=== PATIENT | female | born 1950 | race Caucasian/White ===

== ENCOUNTER 2023-12-29 06:14 | Day surgery (SDC) | payer MEDICARE, OTHER, SELFPAY ==
--- NOTE | 2023-11-24 12:12 | CM ---
Addendum entered by Keshia Paz 12/22/23 11:38:
Spoke again with patient. She has obtained a rolling walker and will bring it to the hospital on the day of surgery. She has not yet watched the online education program and was reminded to do so before surgery.
Original Note:
Patient is scheduled for an elective L TKR on 12/29/23- she is a same day patient. Spoke with patient prior to surgery. Introduced role of Orthopedic Navigator. Patient reports that she lives with her and 21 year old grandson in a two story
home. There are two or three steps to enter and a flight of steps, with a landing, to the second floor. She currently functions independently. She has no DME. She has had VN services in the past. PCP is Luz Marina Lyn.
Discussed orthopedic program and post surgical plans. Reviewed that she will have VN services initially (medicare.gov website and ratings reviewed) and will then start outpatient PT. Patient selects VN (face sheet faxed to VN to facilitate
confirmation of benefits) for her home care needs and will go to for outpatient PT.
Patient is in agreement with plan and states that her will be home with her.
Patient will complete online education.
Plan: Orthopedic Navigator will remain available to assist with the care of patient and will reassess discharge needs after surgery.
[2023-12-08 09:36] VITALS: BMI 26.5
[2023-12-08 10:48] LABS: Hematocrit 41.5 % (37.0-47.0); Hemoglobin 13.7 g/dL (12.0-16.0); Mean Platelet Volume 9.6 fL (7.4-10.4); Platelet Count 261 10^3/uL (130-400); Red Blood Cell Count 4.56 10^6/uL (4.20-5.40); Red Cell Dist. Width 13.4 % (11.5-14.5)
[2023-12-08 11:00] LABS: ALT (SGPT) 47 U/L (0-35); AST (SGOT) 39 U/L (14-36); Albumin 4.3 g/dl (3.5-5.0); Alkaline Phosphatase 90 U/L (38-126); Blood Urea Nitrogen 26 mg/dl (7-17); Calcium 9.6 mg/dl (8.4-10.2); Carbon Dioxide 29 mmol/L (22-30); Chloride 105 mmol/L (98-107); Estimated Creatinine Clearance 50 ml/min; Glucose 160 mg/dl (70-99); Sodium 138 mmol/L (135-145); Total Bilirubin 0.7 mg/dl (0.2-1.3); Total Protein 6.9 g/dl (6.3-8.2); eGFR 59.12
[2023-12-08 14:41] VITALS: BMI 26.5
[2023-12-29] VITALS (27 sets, daily range): BP systolic 49–128; BP diastolic 29–82; PULSE 76; O2SAT 99
[2023-12-29] MEDS: TYLENOL 650 MG PO (08:45)
[2023-12-29] MEDS: CELEBREX 200 MG PO (08:45)
[2023-12-29] MEDS: NORMOSOL-R 1000 IV ×2 (08:46→13:12)
[2023-12-29 08:55] LABS: Glucose - Point of Care 169 mg/dl (70-99)
[2023-12-29 12:18] LABS: Glucose - Point of Care 162 mg/dl (70-99)
--- NOTE | 2023-12-29 14:04 | CM ---
Patient had planned L TKR today. Met with patient at bedside to review discharge plans. Patient will be returning home today with services through [facility]. On Wednesday, 01/02, patient will start outpatient PT at [facility]. Reviewed MD follow up
in two weeks and patient is aware of need to schedule appointment.
Patient has her rolling walker here with her.
PT and [facility] were kept updated as to progress and discharge plans.
[2023-12-29 14:07] LABS: Glucose - Point of Care 152 mg/dl (70-99)
[2023-12-29] MEDS: ROXICODONE 5 MG PO (14:07)
[2023-12-29] MEDS: ANCEF 5 IV (15:00)
[2023-12-29] MEDS: COMPAZINE 10 MG IV (15:22)
== END 2023-12-29 15:34 | disposition home health service (06) ==
LOC: SDS 06:14
PROVIDERS: ATTENDING PHYSICIAN Orthopaedic Surgery; FAMILY PHYSICIAN Internal Medicine; OTHER PHYSICIAN Physician Assistant
DX: M17.12 Unilateral primary osteoarthritis, left knee (principal)
CPT/HCPCS: 27447; 36415; 73560; 80053; 82962; 83036; 85027; 87070; 93005; 97116; 97161; C1713; C1776

== ENCOUNTER 2024-01-19 10:48 | Outpatient (RCR) | payer MEDICARE, OTHER, SELFPAY | END 2024-01-19 23:59 | disposition home or self-care (01) | LOC: RPT 10:48 | PROVIDERS: ATTENDING PHYSICIAN Orthopaedic Surgery; FAMILY PHYSICIAN Internal Medicine | DX: Z47.1 Aftercare following joint replacement surgery (principal); Z96.652 Presence of left artificial knee joint; R26.89 Other abnormalities of gait and mobility; Z73.6 Limitation of activities due to disability | CPT/HCPCS: 97010; 97110; 97112; 97116; 97162 ==

== ENCOUNTER 2024-02-15 10:48 | Outpatient (RCR) | payer MEDICARE, OTHER, SELFPAY | END 2024-02-15 23:59 | disposition home or self-care (01) | LOC: RPT 10:48 | PROVIDERS: ATTENDING PHYSICIAN Orthopaedic Surgery; FAMILY PHYSICIAN Internal Medicine | DX: Z47.1 Aftercare following joint replacement surgery (principal); Z96.652 Presence of left artificial knee joint; R26.89 Other abnormalities of gait and mobility; Z73.6 Limitation of activities due to disability | CPT/HCPCS: 97010; 97110; 97112; 97116 ==

== ENCOUNTER 2024-03-03 09:51 | Outpatient (RCR) | payer MEDICARE, OTHER, SELFPAY | END 2024-03-07 14:58 | disposition home or self-care (01) | LOC: RPT 09:51 | PROVIDERS: ATTENDING PHYSICIAN Orthopaedic Surgery; FAMILY PHYSICIAN Internal Medicine | DX: Z47.1 Aftercare following joint replacement surgery (principal); Z96.652 Presence of left artificial knee joint; R26.89 Other abnormalities of gait and mobility; Z73.6 Limitation of activities due to disability | CPT/HCPCS: 97110 ==

== ENCOUNTER → 2024-11-20 09:34 | Outpatient (REF) | payer MEDICARE, OTHER, SELFPAY | LOC: WDC 09:34 | PROVIDERS: ATTENDING PHYSICIAN Obstetrics & Gynecology Gynecology; FAMILY PHYSICIAN Family Medicine | DX: Z12.31 Encounter for screening mammogram for malignant neoplasm of breast (principal) | CPT/HCPCS: 77063; 77067 ==

== ENCOUNTER 2024-12-26 13:29 | Inpatient (IN) | payer MEDICARE, OTHER, SELFPAY ==
[2024-12-26] VITALS (33 sets, daily range): BP systolic 81–111; BP diastolic 50–85; BMI 28.0; BMI 23.5
[2024-12-26] MEDS: NSS 1000 IV (08:15)
--- NOTE | 2024-12-26 08:19 | ED.GENMED ---
History of Present Illness
General
Chief Complaint: Heart Rate Problem
Source: patient and spouse
Exam Limitations: none
Time Seen by Provider: 12/26/24 08:03
Nursing documentation reviewed up to this point in time: agreed with
History of Present Illness
History of Present Illness:
74-year-old female presents with syncope
Normal state of health, woke up this morning feeling weak dizzy fell off the toilet, EMS was called found her to be in a sounds like an SVT with low blood pressure given adenosine IV fluids and then Cardizem, distant history of arrhythmia 20 years
ago before her Whipple procedure, none since then, no blood thinners on no cardiac meds has been n.p.o. since midnight for planned cataract surgery today, also been holding her supplements for a week or so, no chest pain no shortness of breath does
feel weak no diarrhea no fevers
Past History
Past History
ED Past Medical History: Other (Agree with documented past medical history)
ED Past Surgical History: Other (Agree with documented past surgical history)
Social History
Tobacco: Non-smoker
Personal:
Living: with family
Review of Systems
Review of Systems
All Other Systems: Not applicable
Constitutional: Reports fatigue; Denies fever
EENT: Reports no symptoms
Respiratory: Denies cough or trouble breathing
Cardiac: Reports palpitations and syncope; Denies chest pain
ABD/GI: Reports no symptoms
: Reports no symptoms
Musculoskeletal: Reports no symptoms
Skin: Reports no symptoms
Neurological: Reports dizzy and weakness
Hematologic/Lymphatic: Reports no symptoms
Phy Exam
Physical Exam
Physical Exam:
Physical Exam
General: 74-year-old female nontoxic hypotensive tachycardia
Neck: No JVD
Heart: Tachycardia
Lungs: no acute respiratory distress. clear bilaterally
Abdomen: Not
Neuro: alert and oriented. no focal neurological deficits
Skin: no rash
Psychiatric: well kept. interactive and cooperative
Extremities: no edema. no calf tenderness.
Course
Orders/Labs/Results
Orders:
Orders
12/26/24 07:40
Electrocardiogram (*1) Urgent
Reason for Study: Chest Pain
Cardiac Monitoring- Treatment ONCE
EKG- Treatment ONCE
IV Insert/Care/Rem.- Treatment PRN
12/26/24 08:10
Complete Blood Count/With Diff Urgent
Comprehensive Metabolic Panel Urgent
TSH Urgent
Comment: ADD ON
Troponin I Urgent
12/26/24 08:17
Add On- LAB Urgent
Tests Added?: tsh
12/26/24 08:30
CT Chest PE Study Urgent
Comment:
Reason For Exam: Syncope tachycardia hypotensive
12/26/24 08:37
Diltiazem 125 mg/125 ml Nss [Cardizem] 125 mg in 125 ml IV NOW
Initial dose in mg/hr, then titrate:: 5
Titrate to keep:: Heart rate 80-100 bpm
Titrate by mg/hr:: 5 mg/hr
Frequency of titrations (minutes):: 15
Maximum dose in mg/hr:: 15
12/26/24 09:05
0.9% Sodium Chloride 500 ml [Nss] 1,000 ml IV BOLUS
Abnormal Lab Results
12/26/24
08:10
Absolute Monos (auto) 0.7 H 10^3/uL
(0.1-0.6)
Lymphocytes % 19.0 L %
(20.5-51.1)
BUN 21 H mg/dl
(7-17)
Glucose 166 H mg/dl
(70-99)
AST 50 H U/L
(14-36)
ALT 56 H U/L
(0-35)
Total Protein 6.2 L g/dl
(6.3-8.2)
12/26/24 08:10
12/26/24 08:10
Vital Signs
Initial and Last Documented VS:
Initial Vital Signs
Pulse Ox
100
12/26/24 07:35
Last Documented Vital Signs
Temp Pulse Resp BP Pulse Ox
97.5 F 128 9 99/83 100
12/26/24 07:45 12/26/24 09:45 12/26/24 09:45 12/26/24 09:30 12/26/24 09:45
MDM/Problems Addressed
Differential Diagnosis Includes:
A-fib, SVT, electrolyte abnormality anemia occult infection PE thyroid abnormality
MDM/Problems Addressed:
Fatigue syncope shortness of breath
Chronic conditions affecting care:
A-fib years
Chronic conditions affecting care: Previous abdomnial surgery
Acute Exacerbation and/or Progression of Chronic Illness: Previous abdomnial surgery
*Pulse Oximetry
Patient hypoxic: no
*EKG
Interpreted by ED Provider?: Yes
Interpretation: abnormal
Comparison EKG: no comparison EKG present
Heart Rate: 120
Rate: tachycardiac
Rhythm: a-fib
Ischemia: non-specific ST changes
*Retail Greeting Card Merchandiser Interpretation
Rate: tachycardiac
Interpretation: abnormal
Heart Rate: 120
Rhythm: a-fib
*Critical Care Note
Total Time (30-74mins, 75-104mins- exclusive of procedures): 33
Update Note
Update Note:
10:12 AM, CT noted labs are noted still in A-fib
ED Attending Note
-
Portions of this chart may have been created with voice recognition software.� Occasional wrong word or��sound alike� substitutions may have occurred due to the inherent limitations of voice recognition software.
Discharge Plan
Departure
Prescriptions:
No Action
levothyroxine 88 MCG tablet
88 mcg PO DAILY
zinc acetate 50 mg (zinc) Capsule
50 mg PO DAILY
cetirizine [Aller-Darci] 10 mg Tablet
10 mg PO DAILY
Vitamin C 1,000 mg Tablet Extended Release
1,000 mg PO DAILY
calcium carbonate [Calcium 600] 600 mg calcium (1,500 mg) Tablet
600 mg PO DAILY
vitamin B complex Tablet
1 tab PO DAILY
insulin aspart U-100 [Novolog FlexPen U-100 Insulin] 100 unit/mL (3 mL) Insulin Pen
6 - 10 sliding scale dose SC DIRECTED
Rx Instructions:
recently increased lunch Novolog by 3 units per endocrine
insulin glargine [Lantus Solostar U-100 Insulin] 100 unit/mL (3 mL) Insulin Pen
11 unit SC HS
simvastatin 20 mg Tablet
20 mg PO HS
Black Elderberry
2,000 mg PO DAILY
oxycodone 5 mg tablet
5 - 10 mg PO Q6H PRN (Reason: moderate-severe pain) Qty: 30 0RF
Rx Instructions:
1 tab for moderate pain, 2 if severe.
Dx total joint.
meloxicam 15 mg tablet
15 mg PO DAILY Qty: 30 0RF
Rx Instructions:
Take with food.
DO NOT take within 2 hours of Aspirin post-surgery.
famotidine [Pepcid] 20 mg tablet
20 mg PO HS Qty: 30 0RF
Rx Instructions:
Take nightly while on Meloxicam to prevent GI upset.
ondansetron HCl 4 mg tablet
4 mg PO Q6H PRN (Reason: nausea and vomiting) Qty: 30 0RF
mupirocin 2 % ointment
1 applic intranasal BID Qty: 1 0RF
Patient Comments:
Patient started this medication administration on 12/28/23 in the morning. Patient administered this medication this morning 12/29/23 @ 07:00.
cefadroxil 500 mg capsule
500 mg PO BID Qty: 14 0RF
Rx Instructions:
Start night of discharge and take twice a day until finished.
Take with probiotic.
acetaminophen [Tylenol Extra Strength] 500 mg tablet
1,000 mg PO Q8H Qty: 60 0RF
Rx Instructions:
DO NOT exceed >3000 mg daily.
docusate sodium [Colace] 100 mg capsule
100 mg PO BID Qty: 30 0RF
sennosides [senna] 8.6 mg tablet
17.2 mg PO BID Qty: 30 0RF
aspirin 325 mg tablet
325 mg PO DAILY Qty: 30 0RF
Rx Instructions:
Take daily x4 weeks for blood clot prevention.
Saccharomyces boulardii [Florastor] 250 mg capsule
250 mg PO BID Qty: 14 0RF
Rx Instructions:
Over the counter. Take while on antibiotic.
If unavailable, choose a different probiotic.
Referrals:
Robert Nelson Jr., DO [Family Provider] -
Interventions
Interventions:
*Risk Screen - Suicide Last Done: 12/26/24 07:45
*General Assessment Last Done: 12/26/24 08:00
*Neglect/Abuse Screening Last Done: 12/26/24 07:45
ED- Fall Risk Assessment Last Done: 12/26/24 07:45
*ED COVID-19 Vaccine History Last Done: 12/26/24 07:45
ED- Cardiac Assessment Last Done: 12/26/24 08:25
ED- Pulmonary Assessment Last Done: 12/26/24 08:25
Discharge Date and Time
Print Language: VIETNAMESE
[2024-12-26 08:29] LABS: % Basophils 0.8 % (0-2); % Eosinophils 4.2 % (0-6); % Immature Granulocytes 0.2 % (0-0.5); % Neutrophils 66.8 % (42.2-75.2); Absolute Basophils 0.1 10^3/uL (0-0.2); Absolute Eosinophils 0.4 10^3/uL (0-0.7); Absolute Lymphocytes 1.6 10^3/uL (1.2-3.4); Absolute Monocytes 0.7 10^3/uL (0.1-0.6); Absolute Neutrophils 5.5 10^3/uL (1.4-6.5); Hematocrit 40.3 % (37.0-47.0); Hemoglobin 13.8 g/dL (12.0-16.0); Mean Corp Hgb Conc. 34.2 g/dL (33.0-37.0); Mean Corpuscular Hgb 30.5 pg (27.0-31.0); Mean Platelet Volume 9.4 fL (7.4-10.4); Nucleated Red Blood Cells % 0 %; Platelet Count 234 10^3/uL (130-400); Red Blood Cell Count 4.53 10^6/uL (4.20-5.40); Red Cell Dist. Width 14.1 % (11.5-14.5); White Blood Cell Count 8.3 10^3/uL (4.8-10.8)
[2024-12-26 08:43] LABS: ALT (SGPT) 56 U/L (0-35); AST (SGOT) 50 U/L (14-36); Albumin 3.8 g/dl (3.5-5.0); Alkaline Phosphatase 87 U/L (38-126); Blood Urea Nitrogen 21 mg/dl (7-17); Calcium 9.2 mg/dl (8.4-10.2); Carbon Dioxide 22 mmol/L (22-30); Chloride 107 mmol/L (98-107); Estimated Creatinine Clearance 51 ml/min; Glucose 166 mg/dl (70-99); Potassium 4.4 mmol/L (3.5-5.1); Sodium 139 mmol/L (135-145); Total Bilirubin 0.7 mg/dl (0.2-1.3); Total Protein 6.2 g/dl (6.3-8.2); eGFR > 60.00
[2024-12-26 08:51] LABS: Troponin I 0.017 ng/ml
[2024-12-26] MEDS: CARDIZEM 125 IV (09:03)
[2024-12-26 09:13] LABS: TSH 1.66 uIU/ml (0.47-4.68)
--- NOTE | 2024-12-26 11:32 | CON.CAR ---
Addendum entered and electronically signed by Louis Rousseau DO 12/26/24 13:00:
I saw and examined the patient.
The Pocket Setter Lockstitch's note was reviewed and I agree with the note.
Comment:
Plan:
Discussed atrial fibrillation including rate control, rhythm control and stroke prophylaxis.
Continue IV Cardizem for rate control and transition to oral Cardizem next 24 hours.
Discussed anticoagulation and she was agreeable to this. She will start Eliquis 5 mg twice a day.
Discussed rhythm control with DARNELL/cardioversion which will be scheduled for December 27.
She has upcoming cataract surgery and we discussed that this can usually be done with anticoagulation however if anticoagulation needs to be held that cataract surgery and would have to be deferred for at least 4 weeks post cardioversion.
Her last Mounjaro was December 23.
CT negative for PE. TSH normal.
Original Note:
Consultation
Consultation Request
Date/Time Consultation Performed: 12/26/24
Requesting Provider: Dr. Ag
Performing Provider: Idania Reaves PA-C for Dr. Rousseau
Reason for Consultation: afib
Medical History
-
Chief Complaint: weakness
History of Present Illness:
Patient is a 74-year-old female with past medical history of hypothyroidism, hyperlipidemia, type 2 diabetes on Mounjaro and NovoLog, history of bile duct cancer status post Whipple approximately 20 years ago, uterine cancer status post total
abdominal hysterectomy with radiation who presented to [facility] for evaluation of weakness. She reports she was scheduled for cataract surgery today and has been holding some of her outpatient supplements and medications and
has been n.p.o. since midnight. She reports this morning she woke up and upon walking to the bathroom felt very weak. She states she sat down on the toilet, however fell off because of weakness. She denies loss of consciousness with the event.
Denies chest pain, shortness of breath, palpitations. She reports she then got in the shower thinking she could 'shake it off', however continued to feel poorly and crawled on the floor back to her bedroom and called EMS. Upon EMS arrival she was
reportedly in SVT. Was given adenosine and converted to A-fib. Remains in A-fib at this time. She reports in the setting of her Whipple she had postoperative arrhythmias where the doctor would press on her neck which would improve her heart rate.
She reports she was bedbound so was relatively asymptomatic. She is not on any cardiac medications as an outpatient. Cardiology consulted for evaluation.
PMH:
Hypothyroidism
Hyperlipidemia
Type 2 diabetes
History of bile duct cancer status post Whipple approximately 20 years ago
Presumed SVT post Whipple without known recurrence
Uterine cancer status post GEORGIANA with radiation
Past Medical History
Past Medical History: Other (in HPI)
Social History
Tobacco: Non-Smoker
Alcohol: None
Personal:
Living: With Family
Employment: Retired
Family History
Family History: Other (CVA in father, PE in mother)
Allergies / Home Medications
Allergy/AdvReac Type Severity Reaction Status Date / Time
No Known Allergies Allergy Verified 12/29/23 08:34
�Medication �Instructions �Recorded �Confirmed �Type
levothyroxine 88 mcg tablet 88 mcg PO DAILY 09/15/14 12/26/24 History
Black Elderberry 2,000 mg PO DAILY 12/03/23 12/26/24 History
ascorbic acid (vitamin C) 1,000 mg 1,000 mg PO DAILY 12/03/23 12/26/24 History
tablet,extended release (Vitamin C
ER)
calcium carbonate (Calcium 600) 600 mg PO DAILY 12/03/23 12/26/24 History
cetirizine 10 mg tablet (Aller-Darci) 10 mg PO DAILY 12/03/23 12/26/24 History
insulin aspart U-100 100 unit/mL 6 - 10 sliding scale dose SC AC 12/03/23 12/26/24 History
(3 mL) subcutaneous pen (Novolog
FlexPen U-100 Insulin aspart)
simvastatin 20 mg tablet 20 mg PO HS 12/03/23 12/26/24 History
vitamin B complex 1 tab PO DAILY 12/03/23 12/26/24 History
zinc acetate 50 mg (zinc) capsule 50 mg PO DAILY 12/03/23 12/26/24 History
Eye Drop For Cataract Tx 12/26/24 History
tirzepatide 2.5 mg/0.5 mL 2.5 mg SC SA 12/26/24 12/26/24 History
subcutaneous pen injector
(Mounjaro)
Review of Systems
-
History Source: Patient
All other systems: Negative unless noted
Physical Exam
Vital Signs
Temp Pulse Resp BP Pulse Ox
97.5 F 115 13 88/69 98
12/26/24 07:45 12/26/24 11:00 12/26/24 11:00 12/26/24 11:00 12/26/24 11:00
Lab Results
12/26/24 08:10
12/26/24 08:10
Troponin I 0.017 ng/ml 12/26/24 08:10
Physical Exam
General: No Apparent Distress and Comfortable
HEENT: Normocephalic, Anicteric and Moist Mucous Membranes
Respiratory: Clear and Non Labored Respirations
Cardiac: S1/S2 and Irregular Rhythm
GI: Soft, Non Tender, Non Distended and Normal Bowel Sounds
Musculoskeletal: No Clubbing, No Cyanosis and No Edema
Skin: Warm and Dry
Neuro: AO x 3
Impression / Plan
-
Primary Tailor Helper: none
Assessment:
Presentation with weakness
Atrial fibrillation with RVR, question of initial SVT by EMS s/p adenosine
Hypotension
Hypothyroidism
Hyperlipidemia
Type 2 diabetes
History of bile duct cancer status post Whipple approximately 20 years ago
Presumed SVT post Whipple without known recurrence
Uterine cancer status post [place] with radiation
Pulm nodules
Spleen lesion noted on CT imaging
Plan:
-Patient presented to via EMS due to profound weakness. upon EMS arrival she was felt to be in SVT and was given adenosine and then 'converted' to afib. currently in afib with RVR at times.
-started on IV cardizem gtt in ER
-also relatively hypotensive, receiving IVF. no clear evidence of sepsis, bleeding. chest CT without PE or dissection
-check echo
-TSH WNL
-trop 0.017. no CP
-[id number] score of 4 for age, female, DM. discussed role of OAC with patient. will start eliquis 5mg BID and assess cost to patient
-if remains in afib overnight, would plan for DARNELL/CV in AM. NPO after midnight. of note, on [facility] as OP and last shot was Wednesday12/23/24.
-d/w ER physician
Data Reviewed
-
EKG: Tracing Personally Visualized and interpreted
CT Scan: Report Reviewed by me
Labs: Labs Reviewed by me
Old Records: Reviewed
--- NOTE | 2024-12-26 11:32 | PHANOTE ---
med rec note- reached out to eye doctor office to patient eye medication(s) spoke to office manger and they were going to fax it over, did not receive fax, tried to call again no answer, ask patient if she could bring them in, as she metion earlier
that she could if we need her too.
--- NOTE | 2024-12-26 13:14 | HPS.HSE ---
Family Physician
-
Family Physician: Robert Nelson Jr.
Chief Complaint
-
Palpitations
History of Present Illness
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
complaint of palpitations that started this morning. She states that she was in her normal state of health as of this morning however when she woke up she felt dizzy and weak. States that she fell off the toilet, called EMS who found her to be in
SVT with low blood pressure. EMS administered adenosine, IV fluids, and then Cardizem. Noted to have transient arrhythmia 20 years ago in the perioperative window. Was n.p.o. after midnight for a planned cataract surgery today prior to developing
her symptoms. Upon arrival to the ED HR 130/min however otherwise hemodynamically stable and on room air. Initial labs with AST 50, ALT 56 though otherwise unremarkable. TSH WNL. ECG showed AF with RVR, no obvious ischemic findings. CTA thorax
PE protocol showed 6 mm ADDISON nodule and 3 mm LLL nodule of the lung but otherwise no acute findings. Was evaluated by cardiology in the ED who recommended IV Cardizem, Eliquis 5 mg twice daily, DARNELL cardioversion planned for 12/27.
Medical History
Past Medical History
Past Medical History: Reports Hypothyroidism and IDDM
Additional Past Medical History:
H/O biliary cancer
H/O uterine cancer
Jonathan's thyroiditis
Past Surgical History: Reports Other (Whipple Procedure)
Social History
Tobacco: Non-smoker
Alcohol: None
Drug: None
Family History
Family History: Not pertinent
Allergies / Home Medications
Allergies reflects when Allergies were last updated in [employer].
Home Medications with original date entered in [employer]
Allergy/Medication List:
Allergies
Allergy/AdvReac Type Severity Reaction Status Date / Time
No Known Allergies Allergy Verified 12/29/23 08:34
Home Medications
levothyroxine 88 mcg tablet 88 mcg PO DAILY 09/15/14
Black Elderberry 2,000 mg PO DAILY 12/03/23
ascorbic acid (vitamin C) 1,000 mg tablet,extended release (Vitamin C ER) 1,000 mg PO DAILY 12/03/23
calcium carbonate (Calcium 600) 600 mg PO DAILY 12/03/23
cetirizine 10 mg tablet (Aller-Darci) 10 mg PO DAILY 12/03/23
insulin aspart U-100 100 unit/mL (3 mL) subcutaneous pen (Novolog FlexPen U-100 Insulin aspart) 6 - 10 sliding scale dose SC AC 12/03/23
simvastatin 20 mg tablet 20 mg PO HS 12/03/23
vitamin B complex 1 tab PO DAILY 12/03/23
zinc acetate 50 mg (zinc) capsule 50 mg PO DAILY 12/03/23
Eye Drop For Cataract Tx 12/26/24
tirzepatide 2.5 mg/0.5 mL subcutaneous pen injector (Mounjaro) 2.5 mg SC SA 12/26/24
Review of Systems
-
History Source: Patient
A 12 point ROS was completed and negative except as noted: Yes
Constitutional: Reports No Symptoms
EENT: Reports No Symptoms
Respiratory: Reports No Symptoms
Cardiac: Reports See HPI
Abdomen/GI: Reports No Symptoms
: Reports No Symptoms
Musculoskeletal: Reports No Symptoms
Skin: Reports No Symptoms
Neurological: Reports No Symptoms
Endocrine: Reports No Symptoms
Hematologic/Lymphatic: Reports No Symptoms
Psych: Reports No Symptoms
Physical Exam
Vital Signs
Vital Signs
Temp Pulse Resp BP Pulse Ox
97.5 F 110 12 101/74 98
12/26/24 07:45 12/26/24 13:00 12/26/24 13:00 12/26/24 13:00 12/26/24 13:00
Physical Exam
General: Well Developed, Well Nourished and No Apparent Distress
HEENT: NormoCephalic, Anicteric, Moist mucous membranes and PERRLA
Respiratory: Clear and Non Labored Respirations; No Accessory Resp Muscle Use
Cardiac: S1/S2, Irregular Rhythm and Tachycardia; No Murmur, Rub, Gallop or Peripheral Edema
GI: Soft, Non Tender, Non Distended and Normal Bowel Sounds
Musculoskeletal: No Clubbing and No Cyanosis
Skin: Warm and Dry; No Rash
Neuro: AO x 3 and Nonfocal/grossly intact
Psych: Calm
Laboratory Results
-
12/26/24 08:10
12/26/24 08:10
Laboratory Results
Total Bilirubin 0.7 mg/dl (0.2-1.3) 12/26/24 08:10
AST 50 U/L (14-36) H 12/26/24 08:10
ALT 56 U/L (0-35) H 12/26/24 08:10
Alkaline Phosphatase 87 U/L (38-126) 12/26/24 08:10
Troponin I 0.017 ng/ml 12/26/24 08:10
Data Reviewed
-
Lab Data: Labs Reviewed by me and Discussed with Physician (Cardiology, ED attending)
Impression/Plan
-
#New onset AF with RVR
-[id number] 2-3, nonvalvular; symptoms present <24 hours
-Was evaluated by cardiology and started on IV diltiazem drip
-Was also started on Eliquis for anticoagulation, plan for DCCV
-Initially hypotensive for EMS though otherwise stable here
-Heart rate improved, close to 110/min in AF now
-Denies bleeding history
Plan
-Continue IV diltiazem gtt for now
-Continue Eliquis 5 mg twice daily
-N.p.o. after midnight for DCCV tomorrow morning
-Follow-up DARNELL tomorrow for assessment of LVEF, KASSANDRA, valves
-Telemetry
#Hypothyroidism
#H/O Jonathan's thyroiditis
-Home regimen includes levothyroxine 88 mcg
-TSH upon arrival was WNL, unlikely contributing to AF
-No signs or symptoms of thyroid dysfunction other than AF
#IDDM 2
-Poorly controlled; no known associated microvascular ischemic disease
-Home regimen includes Mounjaro, and aspart ISS; also on statin therapy
-Will continue ISS here with BG goal 140-180
-Hold Mounjaro while inpatient
#H/O pancreatobiliary cancer
#H/O uterine cancer
-Status post Whipple procedure for pancreatobiliary cancer, s/p XRT for uterine cancer
-No known signs of recurrence, not receiving active therapy
DVT prophylaxis: Eliquis
Diet: Regular, NPO @MN
CODE STATUS: Full code
--- NOTE | 2024-12-26 16:50 | PTCARENOTE ---
Pt admitted from the ED at 1423. Afib, rate in the 80's to 100's. Cardizem infusing at 10mg as ordered. Pt denies any chest pain, sob or palpitations. Pt converted to SR at approx 1620. ECG done.Idania Reaves PAC notified.
[2024-12-26] MEDS: CARDIZEM CD 120 MG PO (16:58)
--- NOTE | 2024-12-26 16:59 | W.PN.UPDATE ---
Update Note
Progress Note Update
she converted to SR, confirmed by EKG. stop IV cardizem, transition to po cardizem 120mg daily. ordered now dose of eliquis which does not appear to have been ordered in ER. DARNELL/CV for AM cancelled and diet entered. d/w patient and nursing.
[2024-12-26] MEDS: ELIQUIS 5 MG PO (17:01)
[2024-12-26] MEDS: LIPITOR 10 MG PO (17:01)
--- NOTE | 2024-12-26 17:54 | PTCARENOTE ---
received patient from previous RN, patient sitting in bed eating dinner. monitor shows NSR, HR 80's, VSS. call lindsay within reach
[2024-12-26 21:54] LABS: Glucose - Point of Care 154 mg/dl (70-99)
--- NOTE | 2024-12-26 22:31 | PTCARENOTE ---
Received patient at change of shift. SR on the monitor, HR in the 90s. VSS on room air. No complaints from pt at this time, call lindsay within reach.
[2024-12-27 04:57] VITALS: BP 110/58
[2024-12-27] MEDS: SYNTHROID 88 MCG PO (05:23)
[2024-12-27 05:32] LABS: % Basophils 1.1 % (0-2); % Eosinophils 6.4 % (0-6); % Immature Granulocytes 0.3 % (0-0.5); % Lymphocytes 27.3 % (20.5-51.1); % Neutrophils 55.9 % (42.2-75.2); Absolute Basophils 0.1 10^3/uL (0-0.2); Absolute Eosinophils 0.4 10^3/uL (0-0.7); Absolute Lymphocytes 1.8 10^3/uL (1.2-3.4); Absolute Monocytes 0.6 10^3/uL (0.1-0.6); Absolute Neutrophils 3.6 10^3/uL (1.4-6.5); Hematocrit 39.8 % (37.0-47.0); Hemoglobin 12.9 g/dL (12.0-16.0); Mean Corp Hgb Conc. 32.4 g/dL (33.0-37.0); Mean Corpuscular Hgb 28.6 pg (27.0-31.0); Mean Corpuscular Volume 88.2 fL (81.0-99.0); Mean Platelet Volume 9.2 fL (7.4-10.4); Nucleated Red Blood Cells % 0 %; Platelet Count 232 10^3/uL (130-400); Red Blood Cell Count 4.51 10^6/uL (4.20-5.40); Red Cell Dist. Width 14.1 % (11.5-14.5); White Blood Cell Count 6.5 10^3/uL (4.8-10.8)
[2024-12-27 05:49] LABS: ALT (SGPT) 48 U/L (0-35); AST (SGOT) 33 U/L (14-36); Albumin 3.6 g/dl (3.5-5.0); Alkaline Phosphatase 78 U/L (38-126); Blood Urea Nitrogen 22 mg/dl (7-17); Calcium 9.3 mg/dl (8.4-10.2); Carbon Dioxide 22 mmol/L (22-30); Chloride 109 mmol/L (98-107); Estimated Creatinine Clearance 61 ml/min; Glucose 138 mg/dl (70-99); Potassium 4.3 mmol/L (3.5-5.1); Sodium 138 mmol/L (135-145); Total Bilirubin 0.8 mg/dl (0.2-1.3); Total Protein 6.1 g/dl (6.3-8.2); eGFR > 60.00
--- NOTE | 2024-12-27 07:42 | W.PN.CARDCBS ---
Addendum entered and electronically signed by Adelso Garrett MD 12/27/24 09:26:
I saw and examined the patient.
The Lens Maker's note was reviewed and I agree with the note.
Comment: Briefly, 74-year-old woman presenting with tachycardia identified as having new atrial fibrillation with rapid ventricular response.
Patient spontaneously converted to sinus rhythm yesterday around 2:40 PM without significant conversion pause.
Echo with normal LV function and no significant valve disease
Plan to discharge on oral diltiazem for rate control
New to Eliquis, would continue for cardioembolic prophylaxis
Stable for discharge from my perspective, outpatient follow-up to be arranged
Rest per Idania Reaves
Original Note:
Today's Communication / Plan
-
cardizem cd 120mg daily
eliquis 5mg BID
will arrange OP cardiac follow up
ok for DC
Impression / Plan
-
Primary Marina Manager: none
Assessment:
Presentation with weakness
Atrial fibrillation with RVR, question of initial SVT by EMS s/p adenosine
Hypotension
Hypothyroidism
Hyperlipidemia
Type 2 diabetes
History of bile duct cancer status post Whipple approximately 20 years ago
Presumed SVT post Whipple without known recurrence
Uterine cancer status post [place] with radiation
Pulm nodules
Spleen lesion noted on CT imaging
ECHO 12/26/24: EF 65 to 70%, trace TR, PAP 15 to 20 mmHg, normal pericardium without effusion
Plan:
-Patient spontaneously converted to sinus rhythm yesterday afternoon and has remained in sinus overnight on review of telemetry. No need for DARNELL/cardioversion
-Continue Cardizem CD 120 mg daily
-Continue Eliquis 5 mg twice daily
-TSH within normal limits
-Echo with results as above, reviewed with patient 12/27
-will arrange OP cardiac follow up
-ok to proceed with cataract surgery when able to be rescheduled. may be able to complete on OAC
-ok for DC to home today. d/w hospitalist via TT. d/w nursing
Progress Note - Marina Manager
Subjective
Date of Service: December 27, 2024
denies CP, SOB.
Objective
Labs:
12/27/24 05:05
12/27/24 05:04
Labs
Hgb 12.9 g/dL (12.0-16.0) 12/27/24 05:05
Hct 39.8 % (37.0-47.0) 12/27/24 05:05
Plt Count 232 10^3/uL (130-400) 12/27/24 05:05
Sodium 138 mmol/L (135-145) 12/27/24 05:04
Potassium 4.3 mmol/L (3.5-5.1) 12/27/24 05:04
BUN 22 mg/dl (7-17) H 12/27/24 05:04
Creatinine 0.8 mg/dL (0.6-1.0) 12/27/24 05:04
Glucose 138 mg/dl (70-99) H 12/27/24 05:04
Troponins
12/26/24
08:10
Troponin I 0.017
Vital Signs and I&O:
Vital Signs
Temp Pulse Resp BP Pulse Ox
97.6 F 85 18 102/52 97
12/27/24 04:55 12/27/24 04:15 12/27/24 04:55 12/26/24 22:30 12/27/24 04:55
Vital Signs
Temp Pulse Resp BP Pulse Ox
97.6 F 85 18 102/52 97
12/27/24 04:55 12/27/24 04:15 12/27/24 04:55 12/26/24 22:30 12/27/24 04:55
Physical Exam
Physical Exam
GEN: No distress, awake, alert, oriented x3
HEENT: supple, anicteric, mmm, eomi
LUNGS: CTA B/L, no wheezes/rales
CV: Reg, S1/S2, no murmur
ABD: soft, BS+, NT/ND
EXT: No cyanosis, clubbing, edema
NEURO: Gross non-focal
SKIN: Warm, pink, dry. No rash
[2024-12-27 08:05] LABS: Glucose - Point of Care 135 mg/dl (70-99)
[2024-12-27] MEDS: CARDIZEM CD 120 MG PO (08:22)
[2024-12-27] MEDS: ELIQUIS 5 MG PO (08:23)
[2024-12-27] MEDS: ZYRTEC 10 MG PO (08:23)
[2024-12-27] MEDS: ZINC 50 MG PO (08:23)
[2024-12-27] MEDS: OSCAL CAL 500 500 MG PO (08:23)
[2024-12-27] MEDS: VITAMIN C 1000 MG PO (08:23)
[2024-12-27] MEDS: B COMPLEX w/VITAMIN C 1 CAPLET PO (08:23)
[2024-12-27] MEDS: NOVOLOG FLEXPEN 4 UNITS SC (08:24)
--- NOTE | 2024-12-27 09:54 | W.PN.HOSP.TC ---
Today's Communication/Plan
-
Eliquis
Diltiazem 120 mg
Discharge
Assessment / Plan
Assessment / Plan
#New onset AF with RVR
-[id number] 2-3, nonvalvular; symptoms present <24 hours
-Was evaluated by cardiology and started on IV diltiazem drip
-Was also started on Eliquis for anticoagulation, plan for DCCV
-Initially hypotensive for EMS though otherwise stable here
-Heart rate improved, close to 110/min in AF now
-Denies bleeding history; converted to NSR on evening of 12/26
-Discharged on diltiazem 120 mg ER daily, Eliquis 5 mg twice daily
-Follow-up with film composer for echocardiogram
#Hypothyroidism
#H/O Jonathan's thyroiditis
-Home regimen includes levothyroxine 88 mcg
-TSH upon arrival was WNL, unlikely contributing to AF
-No signs or symptoms of thyroid dysfunction other than AF
#IDDM 2
-Poorly controlled; no known associated microvascular ischemic disease
-Home regimen includes Mounjaro, and aspart ISS; also on statin therapy
-Will continue ISS here with BG goal 140-180
-Hold Mounjaro while inpatient
#H/O pancreatobiliary cancer
#H/O uterine cancer
-Status post Whipple procedure for pancreatobiliary cancer, s/p XRT for uterine cancer
-No known signs of recurrence, not receiving active therapy
DVT prophylaxis: Eliquis
CODE STATUS: Full code
Anticipated Discharge: Today
Subjective/Interval History
-
Date of Service: December 27, 2024
Seen and examined at the bedside. No acute events overnight. AFVSS
Converted to sinus rhythm yesterday, remains as of this morning
Has an orthopedics appointment 1230 that she would like to attend. Spoke with cardiology and will discharge today.
No new complaints this morning
Objective Data
-
Labs:
Laboratory Results
12/27/24 12/27/24
05:04 05:05
WBC 6.5
Hgb 12.9
Hct 39.8
Plt Count 232
Sodium 138
Potassium 4.3
Chloride 109 H
Carbon Dioxide 22
BUN 22 H
Creatinine 0.8
Glucose 138 H
Calcium 9.3
Total Bilirubin 0.8
AST 33
ALT 48 H
Alkaline Phosphatase 78
Vital Signs:
Vital Signs
Temp Pulse Resp BP Pulse Ox
97.6 F 80 16 105/67 98
12/27/24 08:01 12/27/24 08:22 12/27/24 08:01 12/27/24 08:22 12/27/24 08:01
Review of Systems
-
History Source: Patient
All other systems: Reviewed and negative
Physical Exam
-
General: Well Developed, No Apparent Distress and Comfortable
HEENT: Normocephalic, Atraumatic and Moist Mucous Membranes
Respiratory: Clear to Auscultation and Non Labored Respirations
Cardiac: Regular Rhythm and S1/S2; Negative Murmur, Rub or Gallop
GI: Soft, Nontender, Nondistended and Normal Bowel Sounds
Musculoskeletal: No Clubbing, No Cyanosis and No Edema
Skin: Warm, Dry and Normal Turgor; Negative Rash
Neuro: AO x 3 and Nonfocal/Grossly Intact
Psych: Calm
Data Reviewed
-
Labs: Labs Reviewed by me and Discussed with Patient
--- NOTE | 2024-12-27 10:26 | CM ---
CM following for DC planning needs.
Pt. DC'ed to home this AM. There are no identified DC needs.
Plan-home.
--- NOTE | 2024-12-27 13:46 | W.DCSUMMARY ---
Discharge Summary
Discharge Data
Date of Admission: 12/26/24
Date of Discharge: 12/27/24
Total time spent discharging patient (in min): 31
-
Pending Results: No
Hospital Course
Discharging Physician : Fransico Finney DO
Disposition : Home
Principal Discharge diagnosis :
New onset atrial fibrillation
Chronic Discharge diagnosis :
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
IDDM 2
HLD
History of pancreatobiliary cancer s/p Whipple surgery
Hospital Course : 74-year-old female that presented to the hospital with palpitations and sensation that her heart was racing, beginning the morning of 12/26/2024 when she awoke. Came into the emergency department for further assessment was found to
be in atrial fibrillation with rapid ventricular response. Was started on diltiazem drip and Eliquis 5 mg twice daily due to timing of symptoms and low risk for cardiac thrombus being present. Was initially made n.p.o. with plan for DARNELL with DCCV
however patient spontaneously converted to normal sinus rhythm. Was transition to oral diltiazem 120 mg ER daily. Maintained sinus rhythm for the remainder of the hospitalization and was discharged on 12/27/2024 with outpatient follow-up for
patient transport officer. Should have consideration for TTE with patient transport officer
Consultants: Cardiology�Garyroxann Harper MD
Important imaging findings : None
Procedure findings : None
Follow-up: Follow-up with patient transport officer in 2 to 3 weeks, PCP within 1 to 2 weeks. Consideration for outpatient TTE
Discharge Plan
-
Patient Disposition: Home (Routine Discharge)
Discharge Diagnosis/Procedures: Atrial Fibrillation
Condition: Good
Diet: Diabetic, Carb Controlled
Activity: As tolerated
Driving Restrictions: Not until seen by your Dr
Bathing Restrictions: None
Blood Work: None
Others Tests: Echocardiogram, to be performed with patient transport officer
Activity Restrictions/Additional Instructions:
After discharge from the hospital you should schedule a follow-up appointment with your family doctor, should be seen in office within 1 to 2 weeks of discharge
Please attend your follow-up appointment with cardiology on 01/17/2025 at 9 AM. Referral and office information provided below
Referrals:
Robert Nelson Jr., DO [Family Provider] -
Candy Pereira PA-C [Specified Professional Personl] - 01/17/25 9:00 am (You have a cardiology follow up appointment at the [place] office. Please call with questions. )
Additional Discharge Medication Instructions: Start diltiazem 120 mg every morning indefinitely
Start Eliquis 5 mg twice daily indefinitely
Prescriptions:
New
diltiazem HCl 120 mg Capsule,Extended Release 24hr
120 mg PO DAILY 30 Days Qty: 30 0RF
Eliquis 5 mg Tablet
5 mg PO BID 30 Days Qty: 60 0RF
Continued
levothyroxine 88 MCG tablet
88 mcg PO DAILY
zinc acetate 50 mg (zinc) Capsule
50 mg PO DAILY
cetirizine [Aller-Darci] 10 mg Tablet
10 mg PO DAILY
Vitamin C 1,000 mg Tablet Extended Release
1,000 mg PO DAILY
calcium carbonate [Calcium 600] 600 mg calcium (1,500 mg) Tablet
600 mg PO DAILY
vitamin B complex Tablet
1 tab PO DAILY
insulin aspart U-100 [Novolog FlexPen U-100 Insulin] 100 unit/mL (3 mL) Insulin Pen
4 SC AC
simvastatin 20 mg Tablet
20 mg PO HS
Black Elderberry
2,000 mg PO DAILY
Mounjaro 2.5 mg/0.5 mL Pen Injector
2.5 mg SC SA
Eye Drop For Cataract Tx
Patient Comments:
awaiting fax from eye doctor office
Discharge Orders:
Discharge Patient (As Directed); Ordered 12/27/24
Ordered By: Fransico Finney
Care Plan Goals
Care Plan Goals:
Problem: Readiness for enhanced knowledge related to diagnosis and treatment plan
Goal: Understand your diagnosis and treatment plan needs, including medications if applicable.
Instructions: Know your diagnosis, underlying causes and treatment plan options, including medications if applicable. Consult with your health care team to learn about your diagnosis and treatment plan, including medications if applicable.
Discharge Date and Time
Discharge Date/Time: 12/27/24 09:57
Print Language: URDU
== END 2024-12-27 09:57 | disposition home or self-care (01) | DRG 310 ==
LOC: IVU 13:29
PROVIDERS: Emergency Medicine; ADMITTING PHYSICIAN Internal Medicine; CONSULT PHYSICIAN Nuclear Medicine Nuclear Cardiology; EMERGENCY PHYSICIAN Emergency Medicine; FAMILY PHYSICIAN Family Medicine
DX: I48.91 Unspecified atrial fibrillation (principal); I47.10 Supraventricular tachycardia, unspecified; I95.9 Hypotension, unspecified; E06.3 Autoimmune thyroiditis; E78.5 Hyperlipidemia, unspecified; E11.36 Type 2 diabetes mellitus with diabetic cataract; D73.89 Other diseases of spleen; R91.8 Other nonspecific abnormal finding of lung field; W18.11XA Fall from or off toilet without subsequent striking against object, initial encounter; Y93.89 Activity, other specified; Y92.002 Bathroom of unspecified non-institutional (private) residence as the place of occurrence of the external cause; Z53.9 Procedure and treatment not carried out, unspecified reason; Z79.890 Hormone replacement therapy; Z79.4 Long term (current) use of insulin; Z79.1 Long term (current) use of non-steroidal anti-inflammatories (NSAID); Z79.82 Long term (current) use of aspirin; Z79.85 Long-term (current) use of injectable non-insulin antidiabetic drugs; Z85.42 Personal history of malignant neoplasm of other parts of uterus; Z92.3 Personal history of irradiation; Z85.09 Personal history of malignant neoplasm of other digestive organs; Z90.411 Acquired partial absence of pancreas; Z90.710 Acquired absence of both cervix and uterus; Z82.3 Family history of stroke; Z82.49 Family history of ischemic heart disease and other diseases of the circulatory system; Z86.0100 Personal history of colon polyps, unspecified
CPT/HCPCS: 71275; 80053; 82962; 83735; 84443; 84484; 85025; 93005; 93306; 96361; 96374; 99291; Q9967

== ENCOUNTER → 2025-01-01 08:52 | Outpatient (REF) | payer MEDICARE, OTHER, SELFPAY | LOC: RAD 08:52 | PROVIDERS: ATTENDING PHYSICIAN Family Medicine | DX: Z13.820 Encounter for screening for osteoporosis (principal); Z78.0 Asymptomatic menopausal state | CPT/HCPCS: 77080 ==

== ENCOUNTER 2025-08-27 06:21 | Day surgery (SDC) | payer MEDICARE, OTHER, SELFPAY ==
[2025-08-27 07:39] LABS: Glucose - Point of Care 127 mg/dl (70-99)
== END 2025-08-27 09:30 | disposition home or self-care (01) ==
LOC: GI 06:21
PROVIDERS: ATTENDING PHYSICIAN Internal Medicine Gastroenterology; FAMILY PHYSICIAN Family Medicine
DX: Z12.11 Encounter for screening for malignant neoplasm of colon (principal); K64.9 Unspecified hemorrhoids; D12.3 Benign neoplasm of transverse colon; K63.5 Polyp of colon; K62.1 Rectal polyp; Z86.0100 Personal history of colon polyps, unspecified
CPT/HCPCS: 45385; 45380; 82962; 88305

== ENCOUNTER 2025-09-03 00:03 | Emergency (ER) | payer MEDICARE, OTHER, SELFPAY ==
[2025-09-03 00:07] VITALS: BP 127/78; BMI 20.5
[2025-09-03 00:20] VITALS: BP 130/77
[2025-09-03 01:00] VITALS: BP 117/58
[2025-09-03 01:02] LABS: Hematocrit 37.3 % (37.0-47.0); Hemoglobin 12.5 g/dL (12.0-16.0); Mean Corp Hgb Conc. 33.5 g/dL (33.0-37.0); Mean Corpuscular Volume 88.0 fL (81.0-99.0); Nucleated Red Blood Cells % 0 %; Platelet Count 236 10^3/uL (130-400); Red Cell Dist. Width 13.1 % (11.5-14.5)
[2025-09-03 01:27] LABS: ALT (SGPT) 90 U/L (0-35); AST (SGOT) 51 U/L (14-36); Albumin 3.8 g/dl (3.5-5.0); Alkaline Phosphatase 97 U/L (38-126); Blood Urea Nitrogen 25 mg/dl (7-17); Calcium 9.2 mg/dl (8.4-10.2); Carbon Dioxide 28 mmol/L (22-30); Chloride 105 mmol/L (98-107); Estimated Creatinine Clearance 59 ml/min; Glucose 179 mg/dl (70-99); Potassium 4.0 mmol/L (3.5-5.1); Sodium 139 mmol/L (135-145); Total Protein 6.4 g/dl (6.3-8.2); eGFR > 60.00
--- NOTE | 2025-09-03 01:42 | ED.GENMED ---
History of Present Illness
General
Chief Complaint: Head Injury
Source: patient
Exam Limitations: none
Time Seen by Provider: 09/03/25 01:28
Nursing documentation reviewed up to this point in time: agreed with
History of Present Illness
History of Present Illness:
Note:
CHIEF COMPLAINT(S)
Head injury following a fall.
HISTORY OF PRESENT ILLNESS
The patient is a 74-year-old female with a pertinent history of atrial fibrillation managed with apixaban (Eliquis), chronic renal insufficiency, diabetes, hypothyroidism, presenting with a head injury after a fall. The incident occurred when she
was ascending the stairs with her dog; patricia tripped on the last step and struck his head on a table, described as hitting it 'really hard'. There was no loss of consciousness, but he reported significant pain upon impact. The patients spouse added
that the fall made a loud noise, which indicates impact severity. The patient is concerned about the potential bleeding risk due to his anticoagulation therapy. She did not sustain any other injuries during the fall and denied any wrist or other
body part injuries. She has no neck pain, facial pain, pain in the extremities. She did not loose consciousness. Since the fall, the patient reports that the head pain persists but has not experienced dizziness or changes in vision. she took
ibuprofen for pain management at approximately 10 AM before presentation.
SOCIAL DETERMINANTS AFFECTING HEALTH
The patient recently switched primary care physicians due to his former doctors residential, potentially impacting continuity of care.
MEDICATIONS
Apixaban (Eliquis) for atrial fibrillation.
Ibuprofen, taken at 10 AM on the day of presentation for head pain.
PHYSICAL EXAM
General: Alert, no acute distress.
Skin: Warm, dry.
Head: Normocephalic, atraumatic. Swelling noted on the forehead with small abrasion. No tenderness to palpation of the facial bones.
Neck: Supple, trachea midline. No midline spinal tenderness.
Eye, Ears, Nose, Mouth, and Throat: Oral mucosa moist. No visual changes reported.
Cardiovascular: Regular rate and rhythm, no murmurs. Normal peripheral perfusion, No edema.
Respiratory: Respirations are non-labored.
Gastrointestinal: Abdomen nondistended.
Back: Normal range of motion, Normal alignment.
Musculoskeletal: Normal ROM, normal strength. No neck pain or tenderness reported.
Neurological: Alert and oriented to person, place, time, and situation. Negative for diplopia. No focal neurological deficit observed.
Psychiatric: Cooperative, appropriate mood & affect.
PROBLEM LIST
Acute: Head injury due to fall.
Chronic: Atrial fibrillation under anticoagulation therapy with apixaban (Eliquis).
PLAN
- Await official radiology read regarding the head CT to rule out intracranial hemorrhage.
- Consider additional imaging to assess for potential cervical spine injury due to significant head impact.
- Update tetanus vaccination, given the uncertain vaccination history and injury risk.
- Continue monitoring for any changes in neurological status or onset of symptoms such as dizziness or visual disturbances.
- Advise on follow-up with his new primary care physician for ongoing care and medication management related to atrial fibrillation.
DIFFERENTIAL DIAGNOSIS
The Differential Diagnosis includes, in no particular order and is not limited to:
1. Traumatic brain injury
2. Subdural hematoma
3. Concussion
4. Intracranial hemorrhage
5. Scalp hematoma
6. Skull fracture
7. Cervical spine fracture or injury
8. Soft tissue injury
9. Contusion
10. Laceration
CHART REVIEW
Reviewed discharge summary from 12/27/2024 patient seen for new onset atrial fibrillation
She did have pancreatic to biliary cancer status post Whipple procedure
MDM/DISPOSITION
74-year-old female with past medical history of A-fib on Eliquis presents to ER today with concerns of frontal headache following blunt head trauma. She reports that she was at home and she tripped walking up the stairs she subsequently hit her
head on the table at the top of the stairs. Did not lose consciousness. She subsequently went to bed but was concerned about possible bleeding or if considering Eliquis use. Physical exam she is well-appearing no acute distress. She is
neurologically intact. She is a fall abrasion on her forehead with some frontal swelling. No tenderness of the facial bones. Her tetanus is updated. CT scans negative for intracranial hemorrhage and acute cervical fracture. Patient stable for
discharge.
Past History
Past History
ED Past Medical History: Other (Agree with documented past medical history)
ED Past Surgical History: Other (Agree with documented past surgical history)
Social History
Tobacco: Non-smoker
Personal:
Living: with family
Phy Exam
Physical Exam
Physical Exam:
see hpi
Course
Orders/Labs/Results
Orders:
Orders
09/03/25 00:34
CT Head W/o Iv Contrast Urgent
Comment:
Reason For Exam: head injury on eliquis
09/03/25 00:52
Complete Blood Count/With Diff Urgent
Comprehensive Metabolic Panel Urgent
09/03/25 01:42
CT Cervical Spine W/o Iv Contr Urgent
Comment:
Reason For Exam: head trauma, neck discomfort
09/03/25 02:22
Tetanus/Diphth/Acelpertussis [Adacel] 0.5 ml IM .ONCE ONE
Abnormal Lab Results
09/03/25
00:52
BUN 25 H mg/dl
(7-17)
Glucose 179 H mg/dl
(70-99)
AST 51 H U/L
(14-36)
ALT 90 H U/L
(0-35)
09/03/25 00:52
09/03/25 00:52
Vital Signs
Initial and Last Documented VS:
Initial Vital Signs
Temp Pulse Resp BP Pulse Ox
97.7 F 90 20 127/78 99
09/03/25 00:07 09/03/25 00:07 09/03/25 00:07 09/03/25 00:07 09/03/25 00:07
Last Documented Vital Signs
Temp Pulse Resp BP Pulse Ox
97.7 F 91 17 129/74 96
09/03/25 00:07 09/03/25 03:00 09/03/25 03:00 09/03/25 03:00 09/03/25 03:00
*Pulse Oximetry
SaO2: 98
Oxygen Mode of Delivery: Room air
Patient hypoxic: no
*Critical Care Note
Total Time (30-74mins, 75-104mins- exclusive of procedures): Not Applicable
ED Attending Note
-
Portions of this chart may have been created with voice recognition software.� Occasional wrong word or��sound alike� substitutions may have occurred due to the inherent limitations of voice recognition software.
Discharge Plan
Departure
Patient Disposition: Home (Routine Discharge)
Date of Disposition: 09/03/25
Time of Disposition: 03:33
Patient with high blood pressure during this ER visit?: Yes
Condition: Good
Discharge Problem:
Fall, Contusion of head
Instructions: Head Injury in Adults (DC), BLOOD PRESSURE
Prescriptions:
No Action
levothyroxine 88 MCG tablet
88 mcg PO DAILY
zinc acetate 50 mg (zinc) Capsule
50 mg PO DAILY
cetirizine [Aller-Darci] 10 mg Tablet
10 mg PO DAILY
Vitamin C 1,000 mg Tablet Extended Release
1,000 mg PO DAILY
calcium carbonate [Calcium 600] 600 mg calcium (1,500 mg) Tablet
600 mg PO DAILY
vitamin B complex Tablet
1 tab PO DAILY
insulin aspart U-100 [Novolog FlexPen U-100 Insulin] 100 unit/mL (3 mL) Insulin Pen
4 SC AC
simvastatin 20 mg Tablet
20 mg PO HS
Black Elderberry
2,000 mg PO DAILY
Mounjaro 2.5 mg/0.5 mL Pen Injector
2.5 mg SC SA
Eye Drop For Cataract Tx
Patient Comments:
awaiting fax from eye doctor office
diltiazem HCl 120 mg Capsule,Extended Release 24hr
120 mg PO DAILY 30 Days Qty: 30 0RF
Eliquis 5 mg Tablet
5 mg PO BID 30 Days Qty: 60 0RF
Referrals:
Robert Nelson Jr., DO [Family Provider, Internal Medicine]
Activity Restrictions/Additional Instructions:
You can continue to use ice over the area. You can take Tylenol as needed for pain. I recommend avoiding NSAIDs including Advil.
Please follow-up with your primary care provider.
As discussed, there is no evidence of bleeding within the brain or any cervical spine fracture.
PLEASE RETURN TO ER SHOULD YOU DEVELOP ACUTE WORSENING OF HER SYMPTOMS, BLURRY VISION, LOSS OF CONSCIOUSNESS, CHEST PAIN, SHORTNESS OF BREATH, OR ANY OTHER SIGNS OR SYMPTOMS WORRISOME TO YOU.
Interventions
Interventions:
*Risk Screen - Suicide Last Done: 09/03/25 00:07
*General Assessment Last Done: 09/03/25 00:07
*Neglect/Abuse Screening Last Done: 09/03/25 00:07
*ED- Fall Risk Assessment Last Done: 09/03/25 00:07
*ED COVID-19 Vaccine History Last Done: 09/03/25 00:26
*ED Influenza Vaccine History Last Done: 09/03/25 00:07
*Nursing Disposition Last Done: 09/03/25 03:43
ED- Neurological Assessment Last Done: 09/03/25 00:28
ED-Skin Assessment Last Done: 09/03/25 00:28
Discharge Date and Time
Discharge Date/Time: 09/03/25 03:44
Print Language: MONGOLIAN
[2025-09-03 02:00] VITALS: BP 124/70
[2025-09-03] MEDS: ADACEL 0.5 ML IM (02:47)
[2025-09-03 03:00] VITALS: BP 129/74
== END 2025-09-03 03:44 | disposition home or self-care (01) ==
LOC: EMR 00:03
PROVIDERS: Student in an Organized Health Care Education/Training Program; EMERGENCY PHYSICIAN Emergency Medicine; FAMILY PHYSICIAN Family Medicine
DX: S00.03XA Contusion of scalp, initial encounter (principal); W19.XXXA Unspecified fall, initial encounter; Z23 Encounter for immunization; I48.91 Unspecified atrial fibrillation; E03.9 Hypothyroidism, unspecified; E11.22 Type 2 diabetes mellitus with diabetic chronic kidney disease; N18.9 Chronic kidney disease, unspecified; Z79.01 Long term (current) use of anticoagulants
CPT/HCPCS: 99284; 90471; 70450; 72125; 80053; 85025; 90715